=== PATIENT | male | born 2000 ===

== ENCOUNTER 2020-11-13 22:56 | Emergency (ER) | payer SELFPAY ==
[~2020-11-13] VITALS: Ht 193 cm; Wt 90.0 kg
[2020-11-13 22:57] VITALS: BP 129/79
== END 2020-11-13 23:03 | disposition left against medical advice (07) ==
LOC: M ED 22:56
DX: Z53.21 Procedure and treatment not carried out due to patient leaving prior to being seen by health care provider (principal)